=== PATIENT | male | born 1965 | race African-American/Black ===

== ENCOUNTER → 2018-08-26 | Outpatient (CLI) | payer OTHER ==
--- NOTE | 2018-08-26 17:06 | PCVCIMAG ---
APPROVED REPORT Study performed: 08/26/2018 09:54:21 Exam: Stress Echocardiogram Indication: Hypertension, Hyperlipidemia, Screening for CAD, strong fam hx early CAD Patient Location: Echo lab Stress Nurse: Ambika Markham RN Status: routine Ht: 5 ft 8 in HR: 76 bpm BP: 136/86 mmHg Rhythm: NSR Procedure The patient underwent an Exercise Stress Test using the Otto Protocol. Blood pressure, heart rate, and EKG were monitored. An Echocardiogram was performed by museum technician in four stages in quad fashion. At peak stress, four selected images were obtained and placed side by side with resting images for comparison. Stress Test Details Stress Test: Exercise stress testing was performed using a Otto protocol. HR Resting HR: 76 bpmMax Heart Rate (APMHR): 167 bpm Max HR Achieved: 171 bpmTarget HR (85% APMHR): 141 bpm % of APMHR: 102 Recovery HR: 123 bpm HR response to stress: Normal HR response to stress BP Resting BP: 136/86 mmHg Max BP: 160/84 mmHg Recovery BP: 130/82 mmHg BP response to stress: Normal blood pressure response to stress. ECG Resting ECG: Sinus Rhythm Stress ECG: Sinus Rhythm ST Change: Normal Arrhythmia: None Recovery ECG: Sinus Rhythm Recovery ST Change: Normal Recovery Arrhythmia: None Clinical Reason for Termination: Maximal effort Stress Symptoms: Dyspnea Exercise duration: 11 min 1 sec Highest Stage Achieved: Stage 4: 4.2 mph at 16% grade. Exercise capacity: 13.7 METs Overall Exercise Capacity for Age: Good Scale: Active Angina Score: None Pre-Stress Echo The resting Echocardiogram showed normal left ventricular contractility with an estimated Ejection Fraction of about >55%. Normal wall motion in all segments on baseline images. Post-Stress Echo The stress Echocardiogram showed normal left ventricular contractility with an estimated Ejection Fraction of about 65%. Normal augmentation of wall motion in all segments on post stress images. Clinical No clinical or ECG evidence for ischemia. Conclusion Clinical Response: Non-ischemic Exercise Capacity: Superior Stress ECG Response: Non-ischemic Stress Echo Images: Non-ischemic The left ventricle is normal in size and wall thickness in both the rest and stress images. Other Information Study Quality: Good <Conclusion> The left ventricle is normal in size and wall thickness in both the rest and stress images.
== END | disposition home or self-care (01) ==
LOC: PCVCIMAG 10:01
PROVIDERS: ATTEND Family Medicine
DX: I10 Essential (primary) hypertension (principal); E78.5 Hyperlipidemia, unspecified; Z82.49 Family history of ischemic heart disease and other diseases of the circulatory system
CPT/HCPCS: 93325; 93351